=== PATIENT | female | born 1995 | race Caucasian/White ===

== ENCOUNTER 2020-09-13 11:51 | Outpatient (REF) | payer OTHER, SELFPAY ==
[2020-09-13 12:30] LABS: MANUAL DIFF FLAG NO
[2020-09-13 12:38] LABS: Glucose Urine UA NEG (NEG); Leukocyte Esterase Urine NEG (NEG); Nitrite Urine NEG (NEG); Urine Blood TRACE (NEG); Urine Ketones NEG (NEG); Urine Protein NEG (NEG-TRACE)
[2020-09-13 12:38] LABS: Basophils Percent Auto 0.2 % (0-2); Eosinophils Percent Auto 0.2 % (0-4); Hematocrit 40.6 % (37-47); Hemoglobin 13.4 g/dl (12.0-16.0); Imm Gran Abs Auto 0.02 X10*3/uL (0.00-0.03); Imm Gran Pct Auto 0.2 % (0.0-0.4); Lymphocytes Absolute Auto 2.2 X10*3/uL (1.2-4.9); Lymphocytes Percent Auto 26.8 % (20-40); Mean Corpuscular Hemoglobin 31.1 pg (27.0-33.0); Mean Corpuscular Volume 94.2 fL (80-98); Mean Platelet Volume 10.3 fL (9.4-12.3); Monocytes Absolute Auto 0.5 X10*3/uL (0.1-1.2); Monocytes Percent Auto 5.7 % (2-11); Neutrophils Absolute Auto 5.3 X10*3/uL (2.0-8.3); Neutrophils Percent Auto 66.9 % (45-73); Platelet Count 304 X10*3/uL (160-400); Red Blood Count 4.31 X10*6/uL (4.20-5.50); Red Cell Distribution Width 11.9 % (11.0-16.0)
[2020-09-13 12:39] LABS: Appearance Urine CLEAR; Color Urine YELLOW
[2020-09-13 12:46] LABS: Bacteria Urine 1+ /LPF; Mucus Urine TRACE /LPF; RBC Urine 0-2 /HPF (0); Squamous Epithelial Cell Urine 2+ /LPF; WBC Urine 0 /HPF (0-4)
[2020-09-13 13:16] LABS: Alanine Aminotransferase 17 U/L (0-31); Albumin Level 4.1 g/dL (3.5-5.0); Alkaline Phosphatase 42 U/L (39-117); Anion Gap 11 (12-20); Aspartate Amino Transferase 14 U/L (5-31); Bilirubin Total 0.8 mg/dL (0.0-1.0); Blood Urea Nitrogen 12 mg/dL (9-16); Calcium 9.3 mg/dL (8.4-10.2); Carbon Dioxide 26 mmol/L (22-29); Chloride 105 mmol/L (96-108); Estimated Glomerular Filt Rate > 60; Glucose Random 88 mg/dL (60-115); Magnesium 2.2 mg/dL (1.6-2.6); Potassium 4.6 mmol/L (3.3-5.1); Sodium 137 mmol/L (135-145); Total Protein 7.1 g/dL (6.5-8.0)
[2020-09-13 13:29] LABS: TSH reflex Free T4 0.94 uIU/mL (0.32-4.0)
== END 2020-09-13 11:52 | disposition home or self-care (01) ==
LOC: HO.LAB 11:51
PROVIDERS: PCP Internal Medicine; Visit Provider Internal Medicine
DX: R55 Syncope and collapse (principal)
CPT/HCPCS: 36415; 80053; 81001; 83735; 84443; 85025

== ENCOUNTER 2022-04-19 09:09 | Outpatient (REF) | payer OTHER, SELFPAY | END 2022-04-19 09:10 | disposition home or self-care (01) | LOC: HO.LAB 09:09 | PROVIDERS: Visit Provider Nurse Practitioner Family | DX: N30.01 Acute cystitis with hematuria (principal) | CPT/HCPCS: 87086; 87088; 87186 ==

== ENCOUNTER 2022-05-04 07:30 | Outpatient (REF) | payer OTHER, SELFPAY ==
[2022-05-04 07:45] LABS: MANUAL DIFF FLAG NO
[2022-05-04 08:08] LABS: Basophils Percent Auto 0.4 % (0-2); Eosinophils Absolute Auto 0.1 X10*3/uL (0.0-0.4); Eosinophils Percent Auto 1.1 % (0-4); Hematocrit 41.3 % (37.0-47.0); Hemoglobin 13.9 g/dl (12.0-16.0); Imm Gran Abs Auto 0.03 X10*3/uL (0.00-0.03); Imm Gran Pct Auto 0.4 % (0.0-0.4); Lymphocytes Absolute Auto 2.4 X10*3/uL (1.2-4.9); Lymphocytes Percent Auto 29.3 % (20-40); Mean Corpuscular HGB Conc 33.7 g/dl (31.0-35.0); Mean Corpuscular Hemoglobin 31.2 pg (27.0-33.0); Mean Corpuscular Volume 92.6 fL (80.0-98.0); Mean Platelet Volume 9.9 fL (9.4-12.3); Monocytes Absolute Auto 0.6 X10*3/uL (0.1-1.2); Monocytes Percent Auto 7.4 % (2-11); Neutrophils Percent Auto 61.4 % (45-73); Platelet Count 296 X10*3/uL (160-400); Red Blood Count 4.46 X10*6/uL (4.20-5.50); Red Cell Distribution Width 12.1 % (11.0-16.0); White Blood Count 8.1 X10*3/uL (4.8-10.8)
[2022-05-04 09:21] LABS: Alanine Aminotransferase 15 U/L (0-31); Alkaline Phosphatase 48 U/L (39-117); Anion Gap 11 (12-20); Aspartate Amino Transferase 15 U/L (5-31); Blood Urea Nitrogen 11 mg/dL (9-16); Calcium 9.2 mg/dL (8.4-10.2); Carbon Dioxide 28 mmol/L (22-29); Chloride 103 mmol/L (96-108); Cholesterol 192 mg/dL; Estimated Glomerular Filt Rate > 60; Glucose Fasting 82 mg/dL (60-99); HDL Cholesterol 58 mg/dL; LDL Cholesterol Calculated 123 mg/dl; Potassium 4.2 mmol/L (3.3-5.1); Sodium 138 mmol/L (135-145); Thyroid Stimulating Hormone 1.46 uIU/mL (0.32-4.0); Total Protein 6.7 g/dL (6.5-8.0); Triglycerides 59 mg/dL
[2022-05-09 07:18] LABS: Antibody to SS-A Antigen <1.0 NEG AI (<1.0 NEG); Antibody to SS-B Antigen <1.0 NEG AI (<1.0 NEG)
== END 2022-05-04 07:31 | disposition home or self-care (01) ==
LOC: HO.LAB 07:30
PROVIDERS: PCP Internal Medicine; Visit Provider Internal Medicine
DX: Z00.00 Encounter for general adult medical examination without abnormal findings (principal); E66.9 Obesity, unspecified; R68.2 Dry mouth, unspecified; E78.5 Hyperlipidemia, unspecified
CPT/HCPCS: 36415; 80053; 80061; 84443; 85025; 86235

== ENCOUNTER 2022-09-13 12:49 | Outpatient (REF) | payer OTHER, SELFPAY ==
--- NOTE | ~2022-09-13 | MR_ITS ---
EXAMINATION: MR BRAIN WITHOUT CONTRAST CLINICAL INFORMATION: Headaches. COMPARISON: None. TECHNIQUE: Multiplanar, multisequence imaging of the brain was performed without contrast. FINDINGS: No diffusion abnormalities are identified to suggest an acute or subacute infarct. The ventricles are normal in size. No mass effect or midline shift is seen. Minimal right frontal white matter signal changes are nonspecific and of indeterminate clinical significance. No extra-axial fluid collections are seen. The brainstem and cerebellum are normal. The gradient refocused acquisition is normal. The craniovertebral junction, marrow signal, and midline structures are normal. The major intracranial flow voids at the level of the [place] are preserved. The dural venous sinus flow voids are maintained. The mastoid air cells and paranasal sinuses are well aerated. MR/MR head/brain wo con IMPRESSION: No acute intracranial process. Minimal nonspecific right frontal white matter signal changes.
== END 2022-09-13 12:50 | disposition home or self-care (01) ==
LOC: HO.MRI 12:49
PROVIDERS: PCP Internal Medicine; Visit Provider Internal Medicine
DX: R51.9 Headache, unspecified (principal)
CPT/HCPCS: 70551

== ENCOUNTER 2022-11-01 12:52 | Outpatient (REF) | payer OTHER, SELFPAY ==
[2022-11-01 15:54] LABS: Ferritin 62 ng/mL (10-122); Free T4 (Free Thyroxine) 0.87 ng/dL (0.71-1.85); Vitamin D 25-OH Total 39.9 ng/mL (>30)
[2022-11-06 23:43] LABS: Zinc 52 mcg/dL (60-130)
== END 2022-11-01 12:53 | disposition home or self-care (01) ==
LOC: HO.LAB 12:52
PROVIDERS: PCP Internal Medicine; Visit Provider Physician Assistant Medical
DX: Z13.89 Encounter for screening for other disorder (principal); L65.9 Nonscarring hair loss, unspecified
CPT/HCPCS: 36415; 82306; 82728; 84439; 84630

== ENCOUNTER 2023-01-04 12:34 | Outpatient (AMB) | payer OTHER, SELFPAY ==
[2023-01-04 12:51] VITALS: BP 124/74; PULSE 70; O2SAT 99; BMI 30.7
--- NOTE | 2023-01-04 12:51 | MHC.OFFVIS ---
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 Pt was getting migraines every week and regular headaches in between. Pt states Its been better with the medications she's on, she'll still get little headaches here and there but they aren't bad. Pt states migraines are bad around the time of her period and she will usually have to call out of work. 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 She has had menstrual migraine since age 13, however in Jun-July 2022 she started having more frequent migraine attacks not a/w her menses. She was started on Amitriptyline and Sumatripatn, which has helped, but she still has menstrual migraine. Headache questionnaire: Age/time of onset? 13 Preceding causes? None Previous work-up? Has had normal brain MRI. Typical headache characteristics: Prodrome symptoms? None Aura? Denies Location, quality, characteristics? Starts with mild throbbing- usually bi-temporla but can move into the back of her head or even front of her head. Sometimes behind her eyes/eye pain. Pain intensity? Mild- 10/10 severe. Associated symptoms? Photophobia, phonophobia Focal weakness, Parethesias, Autonomic s/s? none Postdrome? residual pain Triggers? None Any positional, valsalva, exertional, sexual activity triggers? None Menstrual triggers? Either the week before or during her menses. Menses is regular- on OCP. Time of day? Randomly Duration? 3 days in entirety. Frequency? About once a month w/ menses How does headache impact your life? May have to leave work for migraine. 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 Current acute medication use/interventions: Sumatriptan 25mg- sometimes repeats the dose Previous acute medication use: Ibuprofen and Tylenol. Current preventative medication use: Amitriptyline 10mg qhs. Previous preventative medication use: None Non-pharmacological interventions: Rests in a dark quiet room. Other history of headache disorder? No other History of musculoskeletal disorders or injury? None History of concussion/head injury? None History of mood disorder? None History of sleep disorder? None History of respiratory disease? None History of CV disease? None. However when headcahes were more increaed, she was having palpitations- these subsided after starting amitriptyline and imitrex. History of coagulopathy? None History of endocrine or metabolic disease? None History of seizure? None History of GI disorder? None Family planning? None Family history of migraine or other headache disorder? None [facility], [facility] Medical History Acne Obesity (BMI 30-39.9) Overweight (BMI 25.0-29.9) Seborrheic dermatitis Surgical History History of adenoidectomy (~03/1999) Family History Paternal Grandfather Cardiovascular disease Cancer Father No problems noted. Mother No problems noted. Social History (Updated 01/04/23 @ 13:02 by Kayley Contreras CMA) Housing: Apartment Alcohol intake: former Patient Tobacco Use Status: Never used Tobacco e-Cigarette/Vaping Use: Never Used Second Hand Smoke Exposure: No service: No Current occupational status: employed Current occupational exposures/hazards: No Cognitive needs: No Hearing needs: No Vision needs: Yes Review of Systems Const Details: See scanned ROS form Physical Exam Vital Signs: Last Vital Signs Pulse 70 01/04/23 12:51 BP 124/74 01/04/23 12:51 Pulse Ox 99 01/04/23 12:51 Oxygen Delivery Method Room Air 01/04/23 12:51 BMI result Body Mass Index 30.7 Const Orientation/consciousness: patient oriented x3 HEENT Other: No palpable scalp tenderness. Head: Yes normocephalic Resp Effort & Inspection: normal respiratory effort and able to speak in complete sentences Neuro General: patient oriented x3 Cranial nerves: Yes CN's II-XII intact bilaterally Cognition (Neuro): normal cognition Gait exam (Neuro): Normal gait present Motor exam (neuro): 5/5 motor strength present throughout Deep tendon reflexes (DTR's): Right triceps reflex intensity grade: 2+, Left triceps reflex intensity grade: 2+, Rt Biceps (C5, C6): 2+, Left biceps reflex intensity grade: 2+, Right brachioradialis reflex intensity grade: 2+, Left brachioradialis reflex intensity grade: 2+, Right patellar reflex intensity grade: 2+ and Left patellar reflex intensity grade: 2+ Coordination: [id number] test normal, tandem gait normal and Romberg test negative Pupils: Normal pupillary reactivity/response: bilateral Psych Appearance: grossly normal Mental Status: mental status grossly normal Speech and movement: Normal speech and movement present Affect: normal affect Attitude: cooperative Thought process: Normal thought process present Assessment & Plan Assessment & Plan (1) Migraine without aura: Code(s): G43.009 - Migraine without aura, not intractable, without status migrainosus (2) Menstrual migraine: Code(s): G43.829 - Menstrual migraine, not intractable, without status migrainosus Plan For overall headache management: Discussed importance of good self-care, including but not limited to maintaining a healthy diet, adequate fluid intake, adequate sleep, and engaging in regular physical activity. For acute headache treatment: Discussed importance of taking acute medications at the first sign of headache, however stressed importance of avoiding acute medication overuse (especially with combined headache medications). Increase Sumatriptan from 25mg prn to 100mg tab, 1/2 - 1 tab (50-100mg) at onset of headache, may repeat in 2 hours. Max of 2 tabs (200mg) per 24 hours. May adjunct with OTC Tylenol 650mg q 4 hours, Ibuprofen 600mg q 6 hours, or Naproxen 440mg q 12 hrs prn. Reviewed potential adverse effects of triptans, including but not limited to nausea, fatigue, chest tightness/tingling (usually passes within a few minutes), medication overuse headaches. Previous acute migraine medication trials: OTC Tylenol/Ibuprofen- lost effect Acute migraine medication contraindications: None at this time For headache prevention medication: Continue Amitriptyline 10mg qhs Previous migraine prevention medication trials: None Migraine prevention medication contraindications: None at this time For menstrual migraine treatment: Trial taking Naporxen 500mg 1 tab bid and Sumatriptan 50-100mg 1-2 x's per day- up to 2 days prior to onset of menses Pt to follow-up in 3 months or sooner prn. Medications: New naproxen start 1 tab bid 2 days before onset of menses and as needed 500 mg PO BID 30 days 30 tabs 0RF menstrual migraine sumatriptan succinate (0.5 - 1 x 100 mg) 50 - 100 mg orally at onset of headache, may repeat in 2 hrs PRN; max 2 tabs per day or 4 tabs/week (may take with Naproxen). 30 days 12 tabs 6RF migraine headache Coding Level of Care Code New Pt Level 4 (90948) Diagnoses Migraine without aura G43.009 Menstrual migraine G43.829
== END 2023-01-04 13:52 | disposition home or self-care (01) ==
PROVIDERS: Visit Provider Nurse Practitioner Family
DX: G43.009 Migraine without aura, not intractable, without status migrainosus (principal); G43.829 Menstrual migraine, not intractable, without status migrainosus
CPT/HCPCS: 99204

== ENCOUNTER → 2023-01-04 12:34 | Outpatient (BNVA) | payer OTHER, SELFPAY | PROVIDERS: Visit Provider Nurse Practitioner Family ==

== ENCOUNTER 2023-02-28 08:21 | Outpatient (AMB) | payer OTHER, SELFPAY ==
--- NOTE | 2023-02-28 08:23 | MHC.PC.OV ---
Vital Signs 02/28/23 08:24 Height 5 ft 3.5 in Weight 181 lb BMI 31.6 BP 130/82 Blood Pressure Location Lt brachial Position Sitting Pulse 62 Pulse Source Auscultation Intake Visit Reasons: physical exam Intake Note: Patient here for an annual physical exam Research Psychologist Required: No Accompanied by: Self / Same As Patient Allergies No Known Allergies Allergy (Verified 02/28/23 08:31) Medication List - Last Reconciled 02/28/23 by Ayde Uribe MD amitriptyline 10 mg PO BEDTIME 90 days naproxen 500 mg PO BID 30 days norgestimate-ethinyl estradiol 0.25-35 mg-mcg 1 tab PO DAILY sumatriptan succinate 50 - 100 mg orally at onset of headache, may repeat in 2 hrs PRN; max 2 tabs per day or 4 tabs/week (may take with Naproxen). 30 days [Zinc PO DAILY] Tobacco use date assessed: 08/15/22 Dental Screening Dental Screen Date: 02/28/23 Did you have a dental visit in the last 12 months?: Yes Did you have a dental problem in the last 6 months where you did not have access to dental care?: No Was dental information given to patient?: Patient has dentist HPI HPI Comments History of Present Illness Details This is a 27-year-old female that comes physical exam. Last Pap smear was 2019 and was within normal limits. No chest pain or shortness of breath. [facility] Medical History Obesity (BMI 30-39.9) Seborrheic dermatitis Overweight (BMI 25.0-29.9) Acne Surgical History History of adenoidectomy (~03/1999) Family History Paternal Grandfather Cardiovascular disease Cancer Father No problems noted. Mother No problems noted. Social History Housing: Apartment Alcohol intake: former Patient Tobacco Use Status: Never used Tobacco e-Cigarette/Vaping Use: Never Used Second Hand Smoke Exposure: No service: No Current occupational status: employed Current occupational exposures/hazards: No Cognitive needs: No Hearing needs: No Vision needs: Yes Questionnaire Thrive Questionnaire Date Thrive assessed: 08/15/22 HANY-7 AMB Questionnaire HANY-7 Date HANY - 7 assessed: 08/15/22 Source: Developed by Drs. Ton Chavez, Eliana Caicedo, Marcelo Duong and colleagues, with an educational jd from [employer]. Review of Systems Const All systems reviewed & are unremarkable except as noted in HPI and below Eyes Reports no additional complaints, Denies change in vision and Denies other visual disturbances Card Denies chest pain at rest, Denies chest pain with activity, Denies edema, Denies irregular heart rhythm, Denies claudication, Denies dyspnea, Denies dyspnea on exertion, Denies orthopnea, Denies paroxysmal nocturnal dyspnea and Denies slow heart rate Resp Denies cough, Denies dyspnea and Denies dyspnea on exertion GI Denies abdominal pain, Denies change in bowel habits, Denies excessive flatus, Denies nausea and Denies vomiting Denies urinary incontinence, Denies urinary hesitancy and Denies urinary urgency Musc Denies abnormal gait, Denies atrophy, Denies deformity and Denies limited range of motion Skin/Breast Denies bleeding lesions, Denies changing lesions and Denies rash Neuro Denies abnormal gait and Denies lack of coordination Physical exam (Primary Care) Vital Signs: Last Vital Signs BP 130/82 02/28/23 08:24 BMI result Body Mass Index 31.6 Tobacco/Smoking Status: Tobacco use Status Tobacco use date assessed 08/15/22 02/28/23 08:27 Patient Tobacco Use Status Never used Tobacco 02/28/23 08:27 e-Cigarette/Vaping Use Never Used 02/28/23 08:27 Thrive Assessment: Date of Thrive Assessment Date Thrive assessed 08/15/22 02/28/23 08:27 Const Orientation/consciousness: patient oriented x3 HENMT Head: Yes normal to inspection, Yes normocephalic and Yes atraumatic Ears: external ears normal Eyes General: appearance normal, both eyes and all related structures Eyelids: Yes eyelids normal Conjunctivae: conjunctivae normal Neck Neck: Yes normal visual inspection and Yes supple Resp Effort & Inspection: normal respiratory effort Auscultation: clear to auscultation bilaterally Cardio Jugular venous distension: no JVD Rate: regular rate Rhythm: regular rhythm Heart sounds: S1 normal heart sound present and S2 normal heart sound present GI Inspection: Yes normal to inspection Palpation (GI): Soft to palpation and nontender Auscultation: normal bowel sounds Skin General skin exam: no rashes or lesions noted Neuro General: patient oriented x3 and no focal motor deficits Extrem General: Yes full ROM Psych Appearance: grossly normal Office Procedures Flu Questionnaire Does the patient have a severe egg allergy?: No Immunizations flu vacc [id number] 6mos up(PF) 60 mcg(15 mcgx4)/0.5 mL IM syringe Performing Provider: Ayde Uribe MD [facility] Documented (not given) by: ALEJANDRA Sanchez on 02/28/23 08:28 Reason Not Given: Patient Refused Assessment and Plan Assessment & Plan (1) Encounter for physical examination: Code(s): Z00.00 - Encounter for general adult medical examination without abnormal findings Plan: Repeat in a year. Orders: Orders Influenza [id number] Immunization Today Z23 - Encounter for immunization Coding Level of Care Code Est Pt Prev Care 18-39y(84534) Diagnoses Encounter for physical examination Z00.00 Time Spent (min) 31
[2023-02-28 08:24] VITALS: BP 130/82; PULSE 62; BMI 31.6
== END 2023-02-28 08:39 | disposition home or self-care (01) ==
PROVIDERS: Visit Provider Internal Medicine
DX: Z23 Encounter for immunization (principal); Z00.00 Encounter for general adult medical examination without abnormal findings
CPT/HCPCS: 99395

== ENCOUNTER 2023-04-19 14:18 | Outpatient (AMB) | payer OTHER, SELFPAY ==
--- NOTE | 2023-04-19 14:29 | A.OFFVIS_ITS ---
Intake Vital Signs 04/19/23 14:30 Height 5 ft 2 in Weight 186 lb BMI 34.0 BP 122/60 Blood Pressure Location Lt brachial Position Sitting Pulse 74 Pulse Source Pulse Oximeter Pulse Oximetry (%) 98 Oxygen Delivery Method Room Air Intake Visit Reasons: 3m f/u Migraines - LVM Allergies No Known Allergies Allergy (Verified 04/19/23 14:33) Medication List - Last Reconciled 04/19/23 by KIRA Barker amitriptyline 10 mg PO BEDTIME 90 days naproxen 500 mg PO BID 30 days norgestimate-ethinyl estradiol 0.25-35 mg-mcg 1 tab PO DAILY sumatriptan succinate 50 - 100 mg orally at onset of headache, may repeat in 2 h rs PRN; max 2 tabs per day or 4 tabs/week (may take with Naproxen). 30 days [Zinc PO DAILY] HPI HPI Comments History of Present Illness Details 27-yr-old female presents for f/u visit. Pt denies any significant interval medical changes, other than a mild self- limited cold last month. She would like to review the brain MRI from August 2022. Overall, her migraines are better. Less intense. She is able to treat the menstrual migraine at onset with the Sumatriptan. She is tolerating Amitriptyline 10mg qhs well. [facility] Medical History Obesity (BMI 30-39.9) Seborrheic dermatitis Overweight (BMI 25.0-29.9) Acne Surgical History History of adenoidectomy (~03/1999) Family History Paternal Grandfather Cardiovascular disease Cancer Father No problems noted. Mother No problems noted. Social History Housing: Apartment Alcohol intake: former Patient Tobacco Use Status: Never used Tobacco e-Cigarette/Vaping Use: Never Used Second Hand Smoke Exposure: No service: No Current occupational status: employed Current occupational exposures/hazards: No Cognitive needs: No Hearing needs: No Vision needs: Yes Review of Systems Const All systems reviewed & are unremarkable except as noted in HPI and below Physical Exam Vital Signs: Last Vital Signs Pulse 74 04/19/23 14:30 BP 122/60 04/19/23 14:30 Pulse Ox 98 04/19/23 14:30 Oxygen Delivery Method Room Air 04/19/23 14:30 BMI result Body Mass Index 34.0 Const General: cooperative and no acute distress Orientation/consciousness: patient oriented x3 HEENT Head: Yes normocephalic Resp Effort & Inspection: normal respiratory effort and able to speak in complete sentences Neuro General: patient oriented x3, gait normal and CN's II-XI intact bilaterally Cognition (Neuro): normal cognition Motor exam (neuro): 5/5 motor strength present throughout Psych Appearance: grossly normal Mental Status: mental status grossly normal Speech and movement: Normal speech and movement present Affect: normal affect Attitude: cooperative Thought process: Normal thought process present Thought content: Normal thought content present Insight: Good insight present (Psych) Judgement: Good judgement present (Psych) Assessment & Plan Assessment & Plan (1) Migraine without aura: Code(s): G43.009 - Migraine without aura, not intractable, without status migrainosus (2) Menstrual migraine: Code(s): G43.829 - Menstrual migraine, not intractable, without status migrainosus Plan Reviewed brain MRI report and images w/ pt- mild right frontal white matter T2 hyperintesnity. 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 Pt advised to strive to maintain optimal BP, lipid, and blood sugar control. For overall headache management: Again optimized importance of good self-care, including but not limited to maintaining a healthy diet, adequate fluid intake, adequate sleep, and engaging in regular physical activity. ? For acute headache treatment: Continue Sumatriptan from 25mg prn to 100mg tab, 1/2 - 1 tab (50-100mg) at onset of headache, may repeat in 2 hours. Max of 2 tabs (200mg) per 24 hours. May adjunct with OTC Tylenol 650mg q 4 hours, Ibuprofen 600mg q 6 hours, or Naproxen 440mg q 12 hrs prn. Previous acute migraine medication trials: OTC Tylenol/Ibuprofen- lost effect Acute migraine medication contraindications: None at this time ? For headache prevention medication: Continue Amitriptyline 10mg qhs Previous migraine prevention medication trials: None Migraine prevention medication contraindications: None at this time ? For menstrual migraine treatment: Improved, may use Sumatriptan prn at onset. However, if worsens, try taking Naproxen 500mg 1 tab bid and Sumatriptan 50- 100mg 1-2 x's per day- up to 2 days prior to onset of menses ? Pt to follow-up in 6 months or sooner prn. Coding Level of Care Code Est Pt Level 4 (14455) Diagnoses Migraine without aura G43.009 Menstrual migraine G43.829
[2023-04-19 14:30] VITALS: BP 122/60; PULSE 74; O2SAT 98; BMI 34.0
== END 2023-04-19 14:56 | disposition home or self-care (01) ==
PROVIDERS: PCP Internal Medicine; Visit Provider Nurse Practitioner Family
DX: G43.009 Migraine without aura, not intractable, without status migrainosus (principal); G43.829 Menstrual migraine, not intractable, without status migrainosus
CPT/HCPCS: 99214

== ENCOUNTER → 2023-04-19 14:18 | Outpatient (BNVA) | payer OTHER, SELFPAY | PROVIDERS: PCP Internal Medicine; Visit Provider Nurse Practitioner Family ==

== ENCOUNTER 2023-10-18 14:09 | Outpatient (AMB) | payer OTHER, SELFPAY ==
--- NOTE | 2023-10-18 14:41 | MHC.OFFVIS ---
Vital Signs 10/18/23 14:46 Height 5 ft 2 in Weight 185 lb 4 oz BMI 33.9 BP 120/80 Blood Pressure Location Lt brachial Position Sitting Pulse 64 Pulse Source Pulse Oximeter Pulse Oximetry (%) 98 Oxygen Delivery Method Room Air Intake Visit Reasons: 6M follow up-LVM Intake Note: Patient presents for 6 months f/u. Allergies No Known Allergies Allergy (Verified 10/18/23 14:45) Medication List - Last Reconciled 10/18/23 by KIRA Barker amitriptyline 10 mg PO BEDTIME 90 days naproxen 500 mg PO BID 30 days norgestimate-ethinyl estradiol 0.25-35 mg-mcg 1 tab PO DAILY sumatriptan succinate 50 - 100 mg orally at onset of headache, may repeat in 2 hrs PRN; max 2 tabs per day or 4 tabs/week (may take with Naproxen). 30 days [Zinc PO DAILY] HPI Comments Details: 28-yr-old female presents for f/u visit. Pt denies any significant interval medical changes. Pt did change her OCP about 2 months ago, in hopes this would alleviate her migraines. This has been very helpful. Since, she has not had a severe migraine and has not needed to miss work for a migraine. May have a mild migraine once a month, and a regular headache or head feels off the day or two before her menses. Taking Tylenol f/b Sumatriptan is more effective. Baseline headache characteristics: Sever, starts with mild throbbing- usually bi-temporal but can move into the back of her head or even front of her head. Sometimes behind her eyes/eye pain a/w photophobia, phonophobia [facility] Medical History Obesity (BMI 30-39.9) Seborrheic dermatitis Overweight (BMI 25.0-29.9) Acne Surgical History History of adenoidectomy (~03/1999) Family History Paternal Grandfather Cardiovascular disease Cancer Father No problems noted. Mother No problems noted. Social History (Reviewed 10/18/23 @ 14:46 by EAMON Rock Housing: Apartment Alcohol intake: former Patient Tobacco Use Status: Never used Tobacco e-Cigarette/Vaping Use: Never Used Second Hand Smoke Exposure: No service: No Current occupational status: employed Current occupational exposures/hazards: No Cognitive needs: No Hearing needs: No Vision needs: Yes Physical Exam Vital Signs: Last Vital Signs Pulse 64 10/18/23 14:46 BP 120/80 10/18/23 14:46 Pulse Ox 98 10/18/23 14:46 Oxygen Delivery Method Room Air 10/18/23 14:46 BMI result Body Mass Index 33.9 Const General: cooperative and no acute distress Orientation/consciousness: patient oriented x3 Resp Effort & Inspection: normal respiratory effort and able to speak in complete sentences Neuro General: patient oriented x3 Cranial nerves: Yes CN's II-XII intact bilaterally Cognition (Neuro): normal cognition Psych Appearance: grossly normal Mental Status: mental status grossly normal Speech and movement: Normal speech and movement present Affect: normal affect Attitude: cooperative Assessment & Plan Assessment & Plan (1) Migraine without aura: Code(s): G43.009 - Migraine without aura, not intractable, without status migrainosus Category: Medical (2) Menstrual migraine: Code(s): G43.829 - Menstrual migraine, not intractable, without status migrainosus Category: Medical Plan Brain MRI report and images w/ pt- mild right frontal white matter T2 hyperintesnity. 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 Pt advised to strive to maintain optimal BP, lipid, and blood sugar control. ? For overall headache management: Again optimized importance of good self-care, including but not limited to maintaining a healthy diet, adequate fluid intake, adequate sleep, and engaging in regular physical activity. ? For acute headache treatment: Continue Sumatriptan from 25mg prn to 100mg tab, 1/2 - 1 tab (50-100mg) at onset of headache, may repeat in 2 hours. Max of 2 tabs (200mg) per 24 hours. May adjunct with OTC Tylenol 650mg q 4 hours prn. Previous acute migraine medication trials: OTC Tylenol/Ibuprofen- lost effect Acute migraine medication contraindications: None at this time ? For headache prevention medication: Continue Amitriptyline 10mg qhs Previous migraine prevention medication trials: None Migraine prevention medication contraindications: None at this time ? For menstrual migraine treatment: Improved, may use Naproxen or Sumatriptan prn at onset. However, if worsens, try taking Naproxen 500mg 1 tab bid and Sumatriptan 50-100mg 1-2 x's per day- up to 2 days prior to onset of menses ? Pt to follow-up in 6 months or sooner prn. Coding Level of Care Code Est Pt Level 4 (72158) Diagnoses Migraine without aura G43.009 Menstrual migraine G43.829
[2023-10-18 14:46] VITALS: BP 120/80; PULSE 64; O2SAT 98; BMI 33.9
== END 2023-10-18 15:09 | disposition home or self-care (01) ==
PROVIDERS: PCP Internal Medicine; Visit Provider Nurse Practitioner Family
DX: G43.009 Migraine without aura, not intractable, without status migrainosus (principal); G43.829 Menstrual migraine, not intractable, without status migrainosus
CPT/HCPCS: 99214

== ENCOUNTER → 2023-10-18 14:09 | Outpatient (BNVA) | payer OTHER, SELFPAY | PROVIDERS: PCP Internal Medicine; Visit Provider Nurse Practitioner Family ==

== ENCOUNTER 2024-03-05 08:29 | Outpatient (AMB) | payer OTHER, SELFPAY ==
--- NOTE | 2024-03-05 08:37 | MHC.PC.OV ---
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 30 days [Zinc PO DAILY] Tobacco use date assessed: 03/05/24 Dental Screening Dental Screen Date: 03/05/24 Did you have a dental visit in the last 12 months?: Yes Did you have a dental problem in the last 6 months where you did not have access to dental care?: No Was dental information given to patient?: Patient has dentist HPI HPI Comments History of Present Illness Details This is a 28-year-old female that comes for her physical exam. Pap smear done this year and was normal as per patient. No chest pain or shortness on breath. Migraines improved. [facility] Medical History Obesity (BMI 30-39.9) Seborrheic dermatitis Overweight (BMI 25.0-29.9) Acne Surgical History History of adenoidectomy (~03/1999) Family History Paternal Grandfather Cardiovascular disease Cancer Father No problems noted. Mother No problems noted. Social History Housing: Apartment Alcohol intake: former Patient Tobacco Use Status: Never used Tobacco e-Cigarette/Vaping Use: Never Used Second Hand Smoke Exposure: No service: No Current occupational status: employed Current occupational exposures/hazards: No Cognitive needs: No Hearing needs: No Vision needs: Yes Questionnaire PHQ-9 Over the last 2 weeks, how often have you been bothered by any of the following problems? 1. Little interest or pleasure in doing things: not at all 2. Feeling down, depressed, or hopeless: not at all 3. Trouble falling or staying asleep, or sleeping too much: not at all 4. Feeling tired or having little energy: not at all 5. Poor appetite or overeating: not at all 6. Feeling bad about yourself - or that you are a failure or have let yourself or your family down: not at all 7. Trouble concentrating on things, such as reading the newspaper or watching television: not at all 8. Moving or speaking so slowly that other people could have noticed. Or the opposite - being so fidgety or restless that you have been moving around a lot more than usual: not at all 9. Thoughts that you would be better off or of hurting yourself in some way: not at all Total score: 0 Depression Screening Interpretation: Negative Depression Screening Done: Yes 81511 - PHQ-9 Billing: Yes Source: Developed by Drs. Tno Chavez, Eliana Caicedo, Marcelo Duong and colleagues, with an educational jd from [employer], [place]. Thrive Questionnaire Date Thrive assessed: 03/05/24 I am a: Patient What is your living situation today?: I have a steady place to live Within the past 12 months, did the food you bought not last and you didn't have the money to get more?: Never true Within the past 12 months, did you worry whether your food would run out before you got money to buy more?: Never true Do you have trouble paying for medicines?: No Do you have trouble getting transportation to medical appointments?: No Do you have trouble paying your heating and electricity bill?: No Do you have trouble taking care of your child, family member or friend?: No Do you have trouble with day-to-day activities such as bathing, preparing meals, shopping, managing finances, etc.?: No Are you currently unemployed and looking for a job?: No Are you interested in more education?: No Please select the resources that you would like help with: None Currently or been in a relationship where the following occur: No concerns reported THRIVE Score: 0 AUDIT C Alcohol Use Questionnaire (AUDIT-C) 1. How often do you have a drink containing alcohol?: Never Total Score: 0 Score Reviewed/Action Taken: No HANY-7 AMB Questionnaire HANY-7 Date HANY - 7 assessed: 03/05/24 Feeling nervous, anxious, or on edge: 0 = Not at all Not being able to stop or control worryin = Not at all Worrying too much about different things: 0 = Not at all Trouble relaxin = Not at all Being so restless that it is hard to sit still: 0 = Not at all Becoming easily annoyed or irritable: 0 = Not at all Feeling afraid as if something awful might happen: 0 = Not at all Total HANY-7 score (0-4 normal; 5-9 mild; 10-14 moderate; 15-21 severe): 0 Source: Developed by Drs. Ton Chavez, Eliana Caicedo, Marcelo Duong and colleagues, with an educational jd from [employer], [place]. HANY-7 Assessment Billing HANY-7 Assessment Tool: HANY-7 Assessment 11797 Review of Systems Const All systems reviewed & are unremarkable except as noted in HPI and below Card Denies chest pain at rest, Denies chest pain with activity, Denies edema, Denies irregular heart rhythm, Denies claudication, Denies dyspnea, Denies dyspnea on exertion, Denies orthopnea, Denies paroxysmal nocturnal dyspnea and Denies slow heart rate Resp Denies cough, Denies dyspnea and Denies dyspnea on exertion GI Denies abdominal pain, Denies change in bowel habits, Denies excessive flatus, Denies nausea and Denies vomiting Neuro Denies behavioral changes and Denies lack of coordination Psych Denies behavioral changes Physical exam (Primary Care) Vital Signs: Last Vital Signs BP 122/70 03/05/24 08:39 BMI result Body Mass Index 29.3 Tobacco/Smoking Status: Tobacco use Status Tobacco use date assessed 03/05/24 03/05/24 08:40 Patient Tobacco Use Status Never used Tobacco 03/05/24 08:40 e-Cigarette/Vaping Use Never Used 03/05/24 08:40 PHQ-9: PHQ-9 Score PHQ-9: Total score 0 03/05/24 08:40 Depression Screening Interpretation: Negative Thrive Assessment: Date of Thrive Assessment Date Thrive assessed 03/05/24 03/05/24 08:40 Currently or been in a relationship where the following occur: No concerns reported [facility] Head: Yes normal to inspection, Yes normocephalic and Yes atraumatic Ears: external ears normal Eyes General: appearance normal, both eyes and all related structures Eyelids: Yes eyelids normal Conjunctivae: conjunctivae normal Neck Neck: Yes normal visual inspection and Yes supple Resp Effort & Inspection: normal respiratory effort Auscultation: clear to auscultation bilaterally Cardio Jugular venous distension: no JVD Rate: regular rate Rhythm: regular rhythm Heart sounds: S1 normal heart sound present and S2 normal heart sound present GI Inspection: Yes normal to inspection Palpation (GI): Soft to palpation and nontender Auscultation: normal bowel sounds Skin General skin exam: no rashes or lesions noted Neuro General: no focal motor deficits Extrem General: Yes full ROM Psych Appearance: grossly normal Office Procedures Flu Questionnaire Does the patient have a severe egg allergy?: No Immunizations Fluarix Triv [id number] (PF) 45 mcg (15 mcg x 3)/0.5 mL IM syringe Performing Provider: Ayde Uribe MD [facility] [place] [facility] Documented (not given) by: ALEJANDRA Sanchez on 03/05/24 08:41 Reason Not Given: Patient Refused Coding Level of Care Code Est Pt Prev Care 18-39y(16541) Diagnoses Encounter for physical examination Z00.00 Additional Codes HANY-7 Assessment Billing - HANY-7 Assessment Tool: HANY-7 Assessment 63229 ([id number]) Time Spent (min) 30 Assessment & Plan Assessment & Plan (1) Encounter for physical examination: Code(s): Z00.00 - Encounter for general adult medical examination without abnormal findings Category: Medical Plan: Repeat in a year. Orders: Orders Influenza [id number] Immunization Today Z23 - Encounter for immunization
[2024-03-05 08:39] VITALS: BP 122/70; BMI 29.3
== END 2024-03-05 09:26 | disposition home or self-care (01) ==
PROVIDERS: PCP Internal Medicine; Visit Provider Internal Medicine
DX: Z00.00 Encounter for general adult medical examination without abnormal findings (principal); Z23 Encounter for immunization

== ENCOUNTER → 2024-03-05 08:29 | Outpatient (BNVA) | payer OTHER, SELFPAY | PROVIDERS: PCP Internal Medicine; Visit Provider Internal Medicine | DX: Z00.00 Encounter for general adult medical examination without abnormal findings (principal); Z28.21 Immunization not carried out because of patient refusal | CPT/HCPCS: 90471; 96127 ==

== ENCOUNTER 2024-09-19 09:21 | Outpatient (AMB) | payer OTHER, SELFPAY ==
--- NOTE | 2024-09-19 09:34 | A.OFFVIS_ITS ---
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 30 days [Zinc PO DAILY] HPI Comments Details: 29-yr-old female presents for f/u visit of migraine. Pt denies any significant interval medical changes, other than an intentional weight loss greater than 20 lb in the last 6 months. Patient notes she is taking zinc supplement, to manage hair loss, for a long time per recommendation of Dermatology. Since, she has not had a severe migraine in a long time and has not needed to miss work for a migraine. May have a mild migraine once a month, and a regular headache or head feels off the day or two before her menses. Tylenol and Sumatriptan is effective. Uses naproxen for early sign of menstrual migraine. She is compliant with amitriptyline 10 mg q.h.s. Baseline headache characteristics: Sever, starts with mild throbbing- usually bi-temporal but can move into the back of her head or even front of her head. Sometimes behind her eyes/eye pain a/w photophobia, phonophobia PFSH Medical History Obesity (BMI 30-39.9) Seborrheic dermatitis Overweight (BMI 25.0-29.9) Acne Surgical History History of adenoidectomy (~03/1999) Family History Paternal Grandfather Cardiovascular disease Cancer Father No problems noted. Mother No problems noted. Social History Housing: Apartment Alcohol intake: former Patient Tobacco Use Status: Never used Tobacco e-Cigarette/Vaping Use: Never Used Second Hand Smoke Exposure: No service: No Current occupational status: employed Current occupational exposures/hazards: No Cognitive needs: No Hearing needs: No Vision needs: Yes Physical Exam Vital Signs: Last Vital Signs Pulse 72 09/19/24 09:37 BP 110/72 09/19/24 09:37 Pulse Ox 99 09/19/24 09:37 Oxygen Delivery Method Room Air 09/19/24 09:37 BMI result Body Mass Index 24.9 Const General: cooperative and no acute distress Orientation/consciousness: patient oriented x3 Resp Effort & Inspection: normal respiratory effort and able to speak in complete sentences Neuro General: patient oriented x3 Cranial nerves: Yes CN's II-XII intact bilaterally Cognition (Neuro): normal cognition Psych Appearance: grossly normal Mental Status: mental status grossly normal Speech and movement: Normal speech and movement present Affect: normal affect Attitude: cooperative Assessment & Plan Assessment & Plan (1) Migraine without aura: Code(s): G43.009 - Migraine without aura, not intractable, without status migrainosus Category: Medical Qualifiers: Status migrainosus presence: without status migrainosus Intractability: not intractable Qualified Code(s): G43.009 - Migraine without aura, not i ntractable, without status migrainosus (2) Menstrual migraine: Code(s): G43.829 - Menstrual migraine, not intractable, without status migrainosus Category: Medical Qualifiers: Status migrainosus presence: without status migrainosus Intractability: not intractable Qualified Code(s): G43.829 - Menstrual migraine, not intractable, without status migrainosus Plan 09/13/2022, Brain MRI report and images w/ pt- mild right frontal white matter T2 hyperintesnity. 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 Pt advised to strive to maintain optimal BP, lipid, and blood sugar control. ? For overall headache management: Continue to optimize good self-care, including but not limited to maintaining a healthy diet, adequate fluid intake, adequate sleep, and engaging in regular physical activity. Check labs due as patient is taking chronic OTC zinc supplement in setting of weight loss. ? For acute headache treatment: Continue Sumatriptan from 25mg prn to 100mg tab, 1/2 - 1 tab (50-100mg) at onset of headache, may repeat in 2 hours. Max of 2 tabs (200mg) per 24 hours. May adjunct with OTC Tylenol 650mg q 4 hours prn. Previous acute migraine medication trials: OTC Tylenol/Ibuprofen- lost effect Acute migraine medication contraindications: None at this time ? For headache prevention medication: Continue Amitriptyline 10mg daily at bedtime Previous migraine prevention medication trials: None Migraine prevention medication contraindications: None at this time ? For menstrual migraine treatment: May trial taking 1 cup of edamame may per day, starting 1-2 days prior to onset of menstrual migraine. Improved, may use Naproxen or Sumatriptan prn at onset. However, if worsens, try taking Naproxen 500mg 1 tab bid and Sumatriptan 50- 100mg 1-2 x's per day- up to 2 days prior to onset of menses ? Will follow-up upon review of above and patient to follow-up in clinic in 12 months or sooner prn. Orders: Orders Copper, serum Today G43.829 - Menstrual migraine, not intractable, without status migrainosus, L21.9 - Seborrheic dermatitis, unspecified, L98.8 - Other specified disorders of the skin and subcutaneous tissue, R63.4 - Abnormal weight loss Complete Blood Count Auto Diff Today G43.829 - Menstrual migraine, not intractable, without status migrainosus, L21.9 - Seborrheic dermatitis, unspecified, L98.8 - Other specified disorders of the skin and subcutaneous tissue, R63.4 - Abnormal weight loss Comprehensive Met. Panel Today G43.829 - Menstrual migraine, not intractable, without status migrainosus, L21.9 - Seborrheic dermatitis, unspecified, L98.8 - Other specified disorders of the skin and subcutaneous tissue, R63.4 - Abnormal weight loss Zinc Today G43.829 - Menstrual migraine, not intractable, without status migrainosus, L21.9 - Seborrheic dermatitis, unspecified, L98.8 - Other specified disorders of the skin and subcutaneous tissue, R63.4 - Abnormal weight loss Medications: Refilled amitriptyline 10 mg PO BEDTIME 90 days 90 tabs 3RF naproxen start 1 tab bid 2 days before onset of menses and as needed 500 mg PO BID 30 days 30 tabs 6RF menstrual migraine sumatriptan succinate (0.5 - 1 x 100 mg) 50 - 100 mg orally at onset of headache, may repeat in 2 hrs PRN; max 2 tabs per day or 4 tabs/week (may take with Naproxen). 30 days 12 tabs 11RF migraine headache Coding Level of Care Code Est Pt Level 4 (74652) Diagnoses Migraine without aura and without status migrainosus, not intractable G43.009 Status migrainosus presence: without status migrainosus Intractability: not intractable Menstrual migraine without status migrainosus, not intractable G43.829 Status migrainosus presence: without status migrainosus Intractability: not intractable
[2024-09-19 09:37] VITALS: BP 110/72; PULSE 72; O2SAT 99; BMI 24.9
== END 2024-09-19 10:22 | disposition home or self-care (01) ==
LOC: HO.HSMS 09:22
PROVIDERS: PCP Internal Medicine; Visit Provider Nurse Practitioner Family
DX: G43.009 Migraine without aura, not intractable, without status migrainosus (principal); G43.829 Menstrual migraine, not intractable, without status migrainosus
CPT/HCPCS: 99214

== ENCOUNTER 2024-10-04 09:07 | Outpatient (AMB) | payer OTHER, SELFPAY ==
[2024-10-04 09:21] VITALS: BP 110/72; PULSE 74; RESP 15; TEMP 36.6; O2SAT 97
--- NOTE | 2024-10-04 09:21 | MHC.OFFWIV ---
Intake Vital Signs 10/04/24 09:21 Height 52 ft Weight 138 lb BMI 0.2 BP 110/72 Blood Pressure Location Rt brachial Position Sitting Respiration 15 Pulse 74 Pulse Source Pulse Oximeter Temp 97.8 F Temp Source Oral Pulse Oximetry (%) 97 Intake Visit Reasons: EP-?uti Intake Note: Pt is here today lower abd pain and lower back pain with frequent urinatin x3days Patient Tobacco Use Status: Never used Tobacco Allergies No Known Allergies Allergy (Verified 10/04/24 09:26) HPI HPI Comments History of Present Illness Details History of Present Illness - The patient is a 29-year-old female presenting with pain associated with a possible urinary tract infection. - Symptoms began with cramping 3 days ago, progressing over three days. - By yesterday, the cramping intensified significantly. - There was a brief instance of blood in the urine reported 3 days ago - No fever or substantial back pain was noted, and there is no known history of kidney stones. Physical Exam General: Cooperative, healthy appearing, comfortable, no acute distress and well developed Orientation: Patient oriented x3 Limitations: No limitations Head: Normal to inspection Ears: Hearing grossly normal bilaterally Nose: Normal External nose present Face and sinus: Normal facial exam Eyes: Appearance normal, both eyes and all related structures Neck: Normal visual inspection and Yes full ROM Respiratory: Normal respiratory effort and able to speak in complete sentences. Skin: No rashes or lesions noted Neuro: Patient oriented x3 Extremities: Normal to inspection [facility] Medical History (Updated 10/04/24 @ 09:36 by Allyson Knowles PA-C) Zinc-responsive disorder of skin Obesity (BMI 30-39.9) Seborrheic dermatitis Acne Surgical History History of adenoidectomy (~03/1999) Family History Paternal Grandfather Cardiovascular disease Cancer Father No problems noted. Mother No problems noted. Social History Housing: Apartment Alcohol intake: former Patient Tobacco Use Status: Never used Tobacco e-Cigarette/Vaping Use: Never Used Second Hand Smoke Exposure: No service: No Current occupational status: employed Current occupational exposures/hazards: No Cognitive needs: No Hearing needs: No Vision needs: Yes Review of Systems Const All systems reviewed & are unremarkable except as noted in HPI and below Physical Exam Vital Signs: Last Vital Signs Temp 97.8 F 10/04/24 09:21 Pulse 74 10/04/24 09:21 Resp 15 10/04/24 09:21 BP 110/72 10/04/24 09:21 Pulse Ox 97 10/04/24 09:21 BMI result Body Mass Index 0.2 Results AMB Urinalysis, Automated UA Leukoctes 0 Brian/uL Last Edit by Cat Solomon, LILLIANA on 10/04/24 09:27 UA Nitrite Negative Last Edit by Cat Solomon, [employer] on 10/04/24 09:27 UA Urobilinogen 0.2 mg/dL Last Edit by Cat Solomon, [facility] on 10/04/24 09:27 UA Protein 0 mg/dL Last Edit by Cat Solomon, [facility] on 10/04/24 09:27 UA pH 6.0 Last Edit by Cat Solomon, [facility] on 10/04/24 09:27 UA Blood 10 Wade/uL Last Edit by Cat Solomon, [facility] on 10/04/24 09:27 UA Specific [place] 1.015 Last Edit by Cat Solomon, [employer] MA[employer] on 10/04/24 09:27 UA Ketone Negative Last Edit by Cat Solomon, [employer]S MA[employer]GER on 10/04/24 09:27 UA Bilirubin 0 mg/dL Last Edit by Cat Solomon, [employer]S MANAGER on 10/04/24 09:27 UA Glucose 0 mg/dL Last Edit by Cat Solomon, [facility] on 10/04/24 09:27 AMB Test Urine AMB Test Urine Negative Last Edit by Cat Solomon CMA on 10/04/24 09:40 Results Reviewed Results Reviewed: Laboratory Last Values Urine pH (Auto) 6.0 10/04/24 09:22 Specific [place] (Auto) 1.015 10/04/24 09:22 Urine Protein (Auto) 0 mg/dL 10/04/24 09:22 Glucose (UA)(Auto) 0 mg/dL 10/04/24 09:22 Urine Ketones (Auto) Negative 10/04/24 09:22 Urine Blood (Auto) 10 Wade/uL 10/04/24 09:22 Urine Nitrite (Auto) Negative 10/04/24 09:22 Urine Bilirubin (Auto) 0 mg/dL 10/04/24 09:22 Urine Urobilinogen (Auto) 0.2 mg/dL 10/04/24 09:22 Leukocyte Esterase (Auto) 0 Brian/uL 10/04/24 09:22 Tst Clinic Negative 10/04/24 09:32 Assessment & Plan Assessment & Plan (1) UTI (urinary tract infection): Code(s): N39.0 - Urinary tract infection, site not specified Qualifiers: Hematuria presence: with hematuria Urinary tract infection type: acute cystitis Qualified Code(s): N30.01 - Acute cystitis with hematuria Plan: UA neg leuks, neg nitrites and + blood. test is also negative. Considering the presented urinary symptoms, a urine test will be conducted to exclude . Following a negative result, an antibiotic will be prescribed to treat the suspected urinary tract infection. The plan addresses the symptoms including cramping and the presence of blood reported in the urine, while also considering the absence of fever and substantial back pain. The antibiotic therapy will be administered to effectively manage the urinary symptoms, with the patient's symptom history informing the treatment approach. Patient was informed and verbally consented to the use of an ambient scribe for clinic note documentation during this visit. Orders: Orders AMB Urinalysis Automated Today Z13.9 - Encounter for screening, unspecified AMB HCG Urine Test Today Z78.9 - Other specified health status Urine Culture Today N39.0 - Urinary tract infection, site not specified Coding Level of Care Code Est Pt Level 3 (93711) Diagnoses Acute cystitis with hematuria N30.01 Hematuria presence: with hematuria Urinary tract infection type: acute cystitis
== END 2024-10-04 10:50 | disposition home or self-care (01) ==
PROVIDERS: PCP Internal Medicine; Visit Provider Physician Assistant
DX: N30.01 Acute cystitis with hematuria (principal); Z13.9 Encounter for screening, unspecified; Z78.9 Other specified health status

== ENCOUNTER 2024-10-04 09:07 | Outpatient (REF) | payer OTHER, SELFPAY | END 2024-10-04 09:08 | disposition home or self-care (01) | LOC: HO.LAB 09:07 | PROVIDERS: PCP Internal Medicine | DX: N30.01 Acute cystitis with hematuria (principal) | CPT/HCPCS: 81003; 81025; 87086 ==

== ENCOUNTER 2025-03-11 08:25 | Outpatient (REF) | payer OTHER, SELFPAY ==
[2025-03-11 10:27] LABS: Alanine Aminotransferase 14 U/L (0-31); Albumin Level 4.3 g/dL (3.5-5.0); Alkaline Phosphatase 32 U/L (39-117); Anion Gap 7 (12-20); Aspartate Amino Transferase 17 U/L (5-31); Blood Urea Nitrogen 13 mg/dL (9-16); Calcium 8.9 mg/dL (8.4-10.2); Carbon Dioxide 29 mmol/L (22-29); Chloride 109 mmol/L (96-108); Cholesterol 174 mg/dL (<200); Estimated Glomerular Filt Rate > 60; HDL Cholesterol 52 mg/dL (>40); Potassium 4.2 mmol/L (3.3-5.1); Sodium 141 mmol/L (135-145); Total Protein 6.9 g/dL (6.5-8.0); Triglycerides 51 mg/dL (<150)
== END 2025-03-11 08:26 | disposition home or self-care (01) ==
LOC: HO.LAB 08:25
PROVIDERS: Absent Provider Nurse Practitioner Family; PCP Internal Medicine; Visit Provider Internal Medicine
DX: Z00.00 Encounter for general adult medical examination without abnormal findings (principal); E78.5 Hyperlipidemia, unspecified; R20.2 Paresthesia of skin; Z79.899 Other long term (current) drug therapy
CPT/HCPCS: 36415; 80053; 80061; 96127

== ENCOUNTER 2025-03-11 08:25 | Outpatient (AMB) | payer OTHER, SELFPAY ==
--- NOTE | 2025-03-11 08:30 | MHC.PC.OV ---
Vital Signs 03/11/25 08:31 Height 5 ft 2 in Weight 137 lb 4 oz BMI 25.1 BP 92/60 Blood Pressure Location Lt brachial Position Standing Respiration 18 Pulse 90 Pulse Source Pulse Oximeter Temp 97.1 F Temp Source Temporal Artery Scan Pulse Oximetry (%) 96 Oxygen Delivery Method Room Air Intake Visit Reasons: Annual Exam Community Outreach Director Required: No Accompanied by: Self / Same As Patient Allergies No Known Allergies Allergy (Verified 03/11/25 09:01) Medication List - Last Reconciled 03/11/25 by Ayde Uribe MD amitriptyline 10 mg PO BEDTIME 90 days naproxen 500 mg PO BID 30 days norgestimate-ethinyl estradiol 0.25-0.035 mg 1 tab PO DAILY sumatriptan succinate 50 - 100 mg orally at onset of headache, may repeat in 2 hrs PRN; max 2 tabs per day or 4 tabs/week (may take with Naproxen). 30 days [Zinc PO DAILY] Tobacco use date assessed: 03/11/25 Dental Screening Dental Screen Date: 03/11/25 Did you have a dental visit in the last 12 months?: Yes Did you have a dental problem in the last 6 months where you did not have access to dental care?: No Was dental information given to patient?: Patient has dentist HPI HPI Comments History of Present Illness Details The patient is a 29-year-old female presenting with an annual physical exam. The patient has a history of migraines, which have improved significantly. She experiences occasional headaches before her menstrual period, which are relieved by medication. The patient reports intermittent numbness in her right hand, particularly in the fingertips of three fingers, which is suggestive of carpal tunnel syndrome. 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 She has experienced similar symptoms in the past, which were managed with wrist wrapping. The patient denies any history of depression or anxiety. She does not smoke and has ceased alcohol consumption. Her parents are alive and healthy. The patient is currently taking amitriptyline, naproxen, oral contraceptives, sumatriptan, and Sync. She has no known drug allergies. Her surgical history includes an adenoidectomy. 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 Mother No problems noted. Social History Housing: Apartment Alcohol intake: former Patient Tobacco Use Status: Never used Tobacco e-Cigarette/Vaping Use: Never Used Second Hand Smoke Exposure: No service: No Current occupational status: employed Current occupational exposures/hazards: No Cognitive needs: No Hearing needs: No Vision needs: Yes Questionnaire PHQ-9 Over the last 2 weeks, how often have you been bothered by any of the following problems? 1. Little interest or pleasure in doing things: not at all 2. Feeling down, depressed, or hopeless: not at all 3. Trouble falling or staying asleep, or sleeping too much: not at all 4. Feeling tired or having little energy: not at all 5. Poor appetite or overeating: not at all 6. Feeling bad about yourself - or that you are a failure or have let yourself or your family down: not at all 7. Trouble concentrating on things, such as reading the newspaper or watching television: not at all 8. Moving or speaking so slowly that other people could have noticed. Or the opposite - being so fidgety or restless that you have been moving around a lot more than usual: not at all 9. Thoughts that you would be better off or of hurting yourself in some way: not at all Total score: 0 Depression Screening Interpretation: Negative Depression Screening Done: Yes 50139 - PHQ-9 Billing: Yes Source: Developed by Drs. Ton Chavez, Eliana Caicedo, Marcelo Duong and colleagues, with an educational jd from [employer]. Thrive Questionnaire Date Thrive assessed: 03/04/25 I am a: Patient What is your living situation today?: I have a steady place to live Within the past 12 months, did the food you bought not last and you didn't have the money to get more?: Never true Within the past 12 months, did you worry whether your food would run out before you got money to buy more?: Never true Do you have trouble paying for medicines?: No Do you have trouble getting transportation to medical appointments?: No Do you have trouble paying your heating and electricity bill?: No Do you have trouble taking care of your child, family member or friend?: I choose not to answer this question Do you have trouble with day-to-day activities such as bathing, preparing meals, shopping, managing finances, etc.?: No Are you currently unemployed and looking for a job?: No Are you interested in more education?: No Please select the resources that you would like help with: None Currently or been in a relationship where the following occur: No concerns reported THRIVE Score: 0 AUDIT C Alcohol Use Questionnaire (AUDIT-C) 1. How often do you have a drink containing alcohol?: Monthly or less 2. How many drinks containing alcohol do you have on a typical day when you are drinking?: 1 or 2 3. How often do you have six or more drinks on one occasion?: Never Total Score: 1 Score Reviewed/Action Taken: No HANY-7 AMB Questionnaire HANY-7 Date HANY - 7 assessed: 03/05/24 Feeling nervous, anxious, or on edge: 0 = Not at all Not being able to stop or control worryin = Not at all Worrying too much about different things: 0 = Not at all Trouble relaxin = Not at all Being so restless that it is hard to sit still: 0 = Not at all Becoming easily annoyed or irritable: 1 = Several days Feeling afraid as if something awful might happen: 0 = Not at all Total HANY-7 score (0-4 normal; 5-9 mild; 10-14 moderate; 15-21 severe): 1 Source: Developed by Drs. Ton Chavez, Eliana Caicedo, Marcelo Duong and colleagues, with an educational jd from [employer]. HANY-7 Assessment Billing HANY-7 Assessment Tool: HANY-7 Assessment 46391 Review of Systems Const All systems reviewed & are unremarkable except as noted in HPI and below Card Denies chest pain at rest, Denies chest pain with activity, Denies edema, Denies irregular heart rhythm, Denies claudication, Denies dyspnea, Denies dyspnea on exertion, Denies orthopnea, Denies paroxysmal nocturnal dyspnea and Denies slow heart rate Resp Denies cough, Denies dyspnea and Denies dyspnea on exertion GI Denies abdominal pain, Denies change in bowel habits, Denies excessive flatus, Denies nausea and Denies vomiting Denies urinary incontinence, Denies urinary hesitancy and Denies urinary urgency Neuro Denies lack of coordination Physical exam (Primary Care) Vital Signs: Last Vital Signs Temp 97.1 F 03/11/25 08:31 Pulse 90 03/11/25 08:31 Resp 18 03/11/25 08:31 BP 92/60 03/11/25 08:31 Pulse Ox 96 03/11/25 08:31 Oxygen Delivery Method Room Air 03/11/25 08:31 BMI result Body Mass Index 25.1 Tobacco/Smoking Status: Tobacco use Status Tobacco use date assessed 03/11/25 03/11/25 08:38 Patient Tobacco Use Status Never used Tobacco 03/11/25 08:38 e-Cigarette/Vaping Use Never Used 03/11/25 08:38 PHQ-9: PHQ-9 Score PHQ-9: Total score 0 03/11/25 08:38 Depression Screening Interpretation: Negative Thrive Assessment: Date of Thrive Assessment Date Thrive assessed 03/04/25 03/11/25 08:38 Currently or been in a relationship where the following occur: No concerns reported [facility] Head: Yes normal to inspection, Yes normocephalic and Yes atraumatic Ears: external ears normal Eyes General: appearance normal, both eyes and all related structures Eyelids: Yes eyelids normal Conjunctivae: conjunctivae normal Neck Neck: Yes normal visual inspection and Yes supple Resp Effort & Inspection: normal respiratory effort Auscultation: clear to auscultation bilaterally Cardio Jugular venous distension: no JVD Rate: regular rate Rhythm: regular rhythm Heart sounds: S1 normal heart sound present and S2 normal heart sound present GI Inspection: Yes normal to inspection Palpation (GI): Soft to palpation and nontender Auscultation: normal bowel sounds Skin General skin exam: no rashes or lesions noted Neuro General: no focal motor deficits Extrem General: Yes full ROM Psych Appearance: grossly normal Coding Level of Care Code Est Pt Level 3 (16110) Est Pt Prev Care 18-39y(29191) Diagnoses Encounter for physical examination Z00.00 Right hand paresthesia R20.2 Additional Codes PHQ-9 - 98359 - PHQ-9 Billing: Yes ([id number]) HANY-7 Assessment Billing - HANY-7 Assessment Tool: HANY-7 Assessment 47438 ([id number]) Time Spent (min) 32 Assessment & Plan Assessment & Plan (1) Encounter for physical examination: Code(s): Z00.00 - Encounter for general adult medical examination without abnormal findings Category: Medical (2) Right hand paresthesia: Code(s): R20.2 - Paresthesia of skin Category: Medical Plan Plan 1. Encounter for general adult medical examination without abnormal findings Z00.00 Tdap up to date. Pap smear in 2021. Declines flu vaccine. 2. Paresthesia of skin R20.2 The patient experiences intermittent numbness in the right hand, likely due to repetitive work activities. A nerve conduction study is planned to confirm the diagnosis. Use of a wrist brace with metal support at night is recommended to prevent progression. Orders: Orders Comprehensive [place]. Panel Fast Today Z00.00 - Encounter for general adult medical examination without abnormal findings NE nerve conduction velocity Today R20.2 - Paresthesia of skin NE electromyogram (EMG) Today R20.2 - Paresthesia of skin Lipid Panel Today E78.5 - Hyperlipidemia, unspecified
[2025-03-11 08:31] VITALS: BP 92/60; PULSE 90; RESP 18; TEMP 36.2; O2SAT 96; BMI 25.1
== END 2025-03-11 09:35 | disposition home or self-care (01) ==
LOC: HO.HMCH 08:25
PROVIDERS: PCP Internal Medicine; Visit Provider Internal Medicine
DX: Z00.00 Encounter for general adult medical examination without abnormal findings (principal); R20.2 Paresthesia of skin